=== PATIENT | male | born 1985 | race African-American/Black ===

== ENCOUNTER 2023-01-01 17:37 | Emergency (ER) | payer MEDICAID ==
--- NOTE | 2023-01-01 17:44 | NUR ---
CALLED TO TRIAGE NO RESPONSE
--- NOTE | 2023-01-01 18:08 | NUR ---
CALLED TO TRIAGE NO RESPONSE
--- NOTE | 2023-01-01 18:12 | NUR ---
PATIENT LEFT WITHOUT BEING SEEN BY DR. MATA. NO FURTHER CARE PROVIDED FOR PATIENT.
== END 2023-01-01 17:44 | disposition left against medical advice (07) ==
LOC: MED 17:37
DX: Z53.21 Procedure and treatment not carried out due to patient leaving prior to being seen by health care provider (principal)

== ENCOUNTER 2023-01-01 18:40 | Emergency (ER) | payer MEDICAID ==
[~2023-01-01] VITALS: Ht 182.9 cm; Wt 85.7 kg
[2023-01-01 18:56] VITALS: BP 143/95
--- NOTE | 2023-01-01 19:03 | NUR ---
PT AMB TO BED 7
--- NOTE | 2023-01-01 19:06 | NUR ---
PT WALKED OUT "NEED TO CATCH MY RIDE HOME".
== END 2023-01-01 19:06 | disposition left against medical advice (07) ==
LOC: MED 18:40
DX: F41.9 Anxiety disorder, unspecified (principal); Z53.21 Procedure and treatment not carried out due to patient leaving prior to being seen by health care provider
CPT/HCPCS: 99281